=== PATIENT | female | born 2000 | race Caucasian/White ===

== ENCOUNTER 2022-06-02 12:50 | Emergency (ER) | payer OTHER, SELFPAY ==
[2022-06-02 12:57] VITALS: BP 145/96; PULSE 81; RESP 18; TEMP 36.3; O2SAT 99; BMI 42.3
--- NOTE | 2022-06-02 13:40 | CT_ITS ---
STUDY: CT BRAIN WITHOUT CONTRAST REASON FOR EXAM: Female, 21 years old. Weakness RADIATION DOSAGE (If Supplied By Facility): CTDIvol = ( 44.99 ) mGy, DLP = ( 812.98 ) mGycm TECHNIQUE: Transaxial CT imaging of the brain was performed without administration of intravenous contrast material. Individualized dose optimization techniques were used for this CT. COMPARISON: No relevant priors. FINDINGS: Normal soft tissue structures. Normal calvarium. Normal size ventricles and extra-axial spaces for the patient''s age. Normal white matter tracts of the cerebral hemispheres. Normal basal ganglia and thalami. Normal brainstem. Normal cerebellum. There is no intracranial hemorrhage. There are no findings of an acute ischemic infarction. Partial opacification of the left maxillary sinus. Mild mucosal thickening of the right maxillary sinus. CT/Brain/Head without Contrast IMPRESSION: Normal unenhanced CT scan of the brain. Sinusitis. Electronically Signed: Alonzo Bwoen MD at 14:32 EDT ,
[2022-06-02 13:42] VITALS: BP 127/81; BP 131/70; BP 147/99; PULSE 68; PULSE 71; PULSE 84
--- NOTE | 2022-06-02 13:48 | EX.ED.DYSGE1 ---
HPI <MARTIN Ferrell - Last Filed: 06/02/22 17:18> History of Present Illness Chief Complaint: Dizziness Narrative Narrative: 21-year-old female with history of anxiety, depression presents the emergency department with 1.5 hours of altered mental status, weakness in her upper and lower extremities, feeling of near syncope. Patient states that she has had a headache for greater than 1 week, she states an hour and a half ago, she felt very dizzy like she almost passed out. Patient states that it feels like she had an out of body experience and now her arms and legs are extremely heavy. Patient states she feels like she can even walk or move her extremities. She denies any shortness of breath, she denies any fevers or chills. Denies any sick contacts. Patient states that this has not happened before. Per the grandmother who is at bedside states that this is not normal for her. PFSH <MARTIN Ferrell - Last Filed: 06/02/22 17:18> [facility] Home Medications bupropion HCl 300 mg 24 hr tablet, extended release 300 mg PO DAILY 06/02/22 [History Last Taken Unknown] fluoxetine 10 mg capsule 10 mg PO DAILY 06/02/22 [History Last Taken Unknown] Allergy/AdvReac Type Severity Reaction Status Date / Time No Known Allergies Allergy Verified 06/02/22 12:56 Social History Smoking Status: Current every day smoker tobacco type: e-cigarettes ROS <MARTIN Ferrell - Last Filed: 06/02/22 17:18> ROS ED ROS Narrative Constitutional: Negative for fever, chills, weight loss. Positive for peripheral body weakness Eyes: Negative for vision loss, vision change, double vision ENT: Negative for any sore throat, ear pain, congestion Cardiovascular: Negative for any chest pain, tightness, palpitations Respiratory: Negative for any dominal pain, nausea, vomiting, diarrhea, constipation, blood in stool, blood in vomit. Positive for cough : Negative for any urinary frequency, dysuria, retention, blood in urine Muscle skeletal: Negative for any muscle joint pain, stiffness, arthralgias, neck pain, back pain. Positive for myalgias, upper and lower extremity weakness Neurological: Negative for any numbness or tingling, dizziness. Positive for headache, near syncope Skin: Negative for any rashes, lumps, itching, abrasions, lacerations Psychiatric: Negative for any depression, anxiety, stress, suicidal ideation, homicidal ideation Hematologic: Negative for any easy bruising, excessive bruising, easy bleeding Allergies: Negative for any eczema, hives, rash EXAM <MARTIN Ferrell - Last Filed: 06/02/22 17:18> Physical Exam Narrative Exam Narrative: Vital signs reviewed. Patient does have a flat affect, patient takes a long time to answer questions. Patient continue to look at her grandmother, and her grandmother says that it is okay that you can talk with him. Physical examination did not yield any significant abnormalities, patient when asked questions will just stare and not answer them. HEET: Head normocephalic atraumatic, TMs clear bilaterally. Posterior pharynx is clear, moist mucous membranes. Nares clear bilaterally. Pupils are equal round reactive to light. EOMs are intact. Negative for any nystagmus. Neck: Supple with no lymphadenopathy or tenderness. No signs of meningismus, negative jolt sign. Cardiac: Regular rate and rhythm no murmurs gallops or rubs, equal peripheral pulses bilaterally. Respiratory: Lungs clear to auscultation bilaterally. No chest tenderness. Abdomen: Soft, nontender, nondistended. No abdominal bruit or pulsatile masses. No hepatosplenomegaly Extremities: No peripheral edema, no signs of gross trauma or deformity. Active full range of motion of all extremities. Patient states that she cannot move her extremities however I see her moving them when i am in the room. Neuro: Cranial nerves II through XII intact, no focal neurological deficits. Skin: Clean dry and intact with no rash, purpura, petechiae, vesicles or pustules. Backs/flank: No CVA tenderness, no midline spinal tenderness, no deformity. Psych: No SI, HI or acute psychosis. Patient does have a flat affect, patient's mood is not appropriate. Psychiatric illness is in the differential. Const Vital Signs: 06/02/22 12:57 06/02/22 13:41 06/02/22 14:00 Temperature 97.3 F L Temperature Source Temporal Pulse Rate 81 74 Pulse Rate [Lying] Pulse Rate [Sitting (for 1 minute prior to obtaining)] Pulse Rate [Standing (for 1 minute prior to obtaining)] Respiratory Rate 18 20 H Respiratory Effort Normal Non-Labored Respiratory Pattern Normal Blood Pressure 145/96 H 136/82 H Blood Pressure [Lying] Blood Pressure [Sitting (for 1 minute prior to obtaining)] Blood Pressure [Standing (for 1 minute prior to obtaining)] Blood Pressure Mean 112 100 Blood Pressure Mean [Lying] Blood Pressure Mean [Sitting (for 1 minute prior to obtaining)] Blood Pressure Mean [Standing (for 1 minute prior to obtaining)] Pulse Ox 99 99 Oxygen Delivery Method Room Air Room Air 06/02/22 13:42 06/02/22 16:00 Temperature Temperature Source Pulse Rate 78 Pulse Rate [Lying] 71 Pulse Rate [Sitting (for 1 minute prior to obtaining)] 68 Pulse Rate [Standing (for 1 minute prior to obtaining)] 84 Respiratory Rate 21 H Respiratory Effort Respiratory Pattern Blood Pressure 142/84 H Blood Pressure [Lying] 131/70 H Blood Pressure [Sitting (for 1 minute prior to obtaining)] 127/81 H Blood Pressure [Standing (for 1 minute prior to obtaining)] 147/99 H Blood Pressure Mean 103 Blood Pressure Mean [Lying] 90 Blood Pressure Mean [Sitting (for 1 minute prior to obtaining)] 96 Blood Pressure Mean [Standing (for 1 minute prior to obtaining)] 115 Pulse Ox 96 Oxygen Delivery Method Room Air Positive well nourished, well developed and obese General Appearance ED: well developed Nutritional Appearance: obese <Dr. Afsaneh Bain, DO - Last Filed: 06/05/22 03:27> Physical Exam Const Vital Signs: 06/02/22 12:57 06/02/22 13:41 06/02/22 14:00 Temperature 97.3 F L Temperature Source Temporal Pulse Rate 81 74 Pulse Rate [Lying] Pulse Rate [Sitting (for 1 minute prior to obtaining)] Pulse Rate [Standing (for 1 minute prior to obtaining)] Respiratory Rate 18 20 H Respiratory Effort Normal Non-Labored Respiratory Pattern Normal Blood Pressure 145/96 H 136/82 H Blood Pressure [Lying] Blood Pressure [Sitting (for 1 minute prior to obtaining)] Blood Pressure [Standing (for 1 minute prior to obtaining)] Blood Pressure Mean 112 100 Blood Pressure Mean [Lying] Blood Pressure Mean [Sitting (for 1 minute prior to obtaining)] Blood Pressure Mean [Standing (for 1 minute prior to obtaining)] Pulse Ox 99 99 Oxygen Delivery Method Room Air Room Air 06/02/22 13:42 06/02/22 16:00 Temperature Temperature Source Pulse Rate 78 Pulse Rate [Lying] 71 Pulse Rate [Sitting (for 1 minute prior to obtaining)] 68 Pulse Rate [Standing (for 1 minute prior to obtaining)] 84 Respiratory Rate 21 H Respiratory Effort Respiratory Pattern Blood Pressure 142/84 H Blood Pressure [Lying] 131/70 H Blood Pressure [Sitting (for 1 minute prior to obtaining)] 127/81 H Blood Pressure [Standing (for 1 minute prior to obtaining)] 147/99 H Blood Pressure Mean 103 Blood Pressure Mean [Lying] 90 Blood Pressure Mean [Sitting (for 1 minute prior to obtaining)] 96 Blood Pressure Mean [Standing (for 1 minute prior to obtaining)] 115 Pulse Ox 96 Oxygen Delivery Method Room Air [facility] <MARTIN Ferrell - Last Filed: 06/02/22 17:18> [facility] Lab Data Labs: Laboratory Results - last 24 hr 06/02/22 06/02/22 06/02/22 14:00 14:07 14:30 WBC 9.4 RBC 4.79 Hgb 13.6 Hct 41.7 MCV 87.1 MCH 28.4 MCHC 32.6 RDW Std Deviation 42.0 RDW Coeff of Arpan 13.2 Plt Count 361 MPV 10.3 Immature Gran % (Auto) 0.400 Neut % (Auto) 64.6 Lymph % (Auto) 25.7 Bethel % (Auto) 7.3 Eos % (Auto) 1.9 Baso % (Auto) 0.1 Absolute Neuts (auto) 6.0 Absolute Lymphs (auto) 2.40 Nucleated RBC % 0 Sodium 140 Potassium 3.9 Chloride 105 Carbon Dioxide 27.0 Anion Gap 8 BUN 11 Creatinine 0.70 Estim Creat Clear Calc 121.55 Est GFR (MDRD) Af Amer 132 Est GFR (MDRD) Non-Af 109 BUN/Creatinine Ratio 15.7 Glucose 102 Calcium 9.4 Magnesium 2.2 TSH 1.89 Urine Color Urine Clarity Urine pH Ur Specific Mio Urine Protein Urine Glucose (UA) Urine Ketones Urine Occult Blood Urine Nitrite Urine Bilirubin Urine Urobilinogen Ur Leukocyte Esterase Urine RBC Urine WBC Ur Squamous Epith Cells Urine Bacteria Urine Mucus Urine Test Urine Opiates Screen NEGATIVE Urine Methadone Screen NEGATIVE Ur Barbiturates Screen NEGATIVE Ur Phencyclidine Scrn NEGATIVE Ur Amphetamines Screen NEGATIVE MDMA (Ecstasy) Screen NEGATIVE U Benzodiazepines Scrn NEGATIVE Urine Cocaine Screen NEGATIVE U Cannabinoids Screen NEGATIVE Ur Drug Screen Comment 06/02/22 14:30 WBC RBC Hgb Hct MCV MCH MCHC RDW Std Deviation RDW Coeff of Arpan Plt Count MPV Immature Gran % (Auto) Neut % (Auto) Lymph % (Auto) Bethel % (Auto) Eos % (Auto) Baso % (Auto) Absolute Neuts (auto) Absolute Lymphs (auto) Nucleated RBC % Sodium Potassium Chloride Carbon Dioxide Anion Gap BUN Creatinine Estim Creat Clear Calc Est GFR (MDRD) Af Amer Est GFR (MDRD) Non-Af BUN/Creatinine Ratio Glucose Calcium Magnesium TSH Urine Color Yellow Urine Clarity Clear Urine pH 6.0 Ur Specific Mio 1.015 Urine Protein Negative Urine Glucose (UA) Normal Urine Ketones Negative Urine Occult Blood Negative Urine Nitrite Negative Urine Bilirubin Negative Urine Urobilinogen Normal Ur Leukocyte Esterase Negative Urine RBC 0 SEEN Urine WBC 0-5 SEEN Ur Squamous Epith Cells 0-5 SEEN Urine Bacteria 0 SEEN Urine Mucus 0 SEEN Urine Test Negative Urine Opiates Screen Urine Methadone Screen Ur Barbiturates Screen Ur Phencyclidine Scrn Ur Amphetamines Screen MDMA (Ecstasy) Screen U Benzodiazepines Scrn Urine Cocaine Screen U Cannabinoids Screen Ur Drug Screen Comment Radiography Diagnostic Testing: Clinical Impression(s) from Imaging Studies Brain CT 06/02/22 13:40 IMPRESSION: Normal unenhanced CT scan of the brain. Sinusitis. Electronically Signed: Alonzo Bowen MD at 14:32 EDT , Chest X-Ray 06/02/22 13:58 IMPRESSION: Scattered calcified granulomas. The lungs are clear. Electronically Signed: Alonzo Bowen MD at 14:31 EDT , Treatment and Re-Evaluation Narrative: Patient on initial exam was difficult to obtain history, patient was not speaking to staff. Patient was acting if she could not speak, could not move. Patient did receive a significant work-up. Patient's vital signs were stable. Patient's orthostatic vital signs were negative. Patient did receive some basic labs, patient CBC chemistries urine toxicology was grossly unremarkable. Patient's urinalysis was negative for any infection. Patient did receive a CT scan of the brain secondary to the symptoms, this was showed sinusitis however normal unenhanced CT scan of the brain. Patient's chest x-ray showed that the lungs were clear. Patient did receive IV fluids. EKG was unremarkable. After being here, receiving IV fluids, patient states that she all of a sudden had full range of motion of her extremities, she felt much better was able speak again. Patient was still complaining of a headache, she received a migraine cocktail of IV Reglan, Benadryl, Toradol, IV fluids. Patient at this time feels back to normal and like to be discharged. The pathology for the patient's symptoms are uncertain, there could be a psychiatric component. However at this time, patient is not suicidal, homicidal, patient is stable for discharge. she instructed to follow-up outpatient. Instructed return for any worsening symptoms. <Dr. Afsaneh Bain, DO - Last Filed: 06/05/22 03:27> [facility] Lab Data Attestation: I reviewed the patient's lab results. Labs: Laboratory Results - last 24 hr 06/02/22 06/02/22 06/02/22 14:00 14:07 14:30 WBC 9.4 RBC 4.79 Hgb 13.6 Hct 41.7 MCV 87.1 MCH 28.4 MCHC 32.6 RDW Std Deviation 42.0 RDW Coeff of Arpan 13.2 Plt Count 361 MPV 10.3 Immature Gran % (Auto) 0.400 Neut % (Auto) 64.6 Lymph % (Auto) 25.7 Bethel % (Auto) 7.3 Eos % (Auto) 1.9 Baso % (Auto) 0.1 Absolute Neuts (auto) 6.0 Absolute Lymphs (auto) 2.40 Nucleated RBC % 0 Sodium 140 Potassium 3.9 Chloride 105 Carbon Dioxide 27.0 Anion Gap 8 BUN 11 Creatinine 0.70 Estim Creat Clear Calc 121.55 Est GFR (MDRD) Af Amer 132 Est GFR (MDRD) Non-Af 109 BUN/Creatinine Ratio 15.7 Glucose 102 Calcium 9.4 Magnesium 2.2 TSH 1.89 Urine Color Urine Clarity Urine pH Ur Specific Mio Urine Protein Urine Glucose (UA) Urine Ketones Urine Occult Blood Urine Nitrite Urine Bilirubin Urine Urobilinogen Ur Leukocyte Esterase Urine RBC Urine WBC Ur Squamous Epith Cells Urine Bacteria Urine Mucus Urine Test Urine Opiates Screen NEGATIVE Urine Methadone Screen NEGATIVE Ur Barbiturates Screen NEGATIVE Ur Phencyclidine Scrn NEGATIVE Ur Amphetamines Screen NEGATIVE MDMA (Ecstasy) Screen NEGATIVE U Benzodiazepines Scrn NEGATIVE Urine Cocaine Screen NEGATIVE U Cannabinoids Screen NEGATIVE Ur Drug Screen Comment 06/02/22 14:30 WBC RBC Hgb Hct MCV MCH MCHC RDW Std Deviation RDW Coeff of Arpan Plt Count MPV Immature Gran % (Auto) Neut % (Auto) Lymph % (Auto) Bethel % (Auto) Eos % (Auto) Baso % (Auto) Absolute Neuts (auto) Absolute Lymphs (auto) Nucleated RBC % Sodium Potassium Chloride Carbon Dioxide Anion Gap BUN Creatinine Estim Creat Clear Calc Est GFR (MDRD) Af Amer Est GFR (MDRD) Non-Af BUN/Creatinine Ratio Glucose Calcium Magnesium TSH Urine Color Yellow Urine Clarity Clear Urine pH 6.0 Ur Specific Mio 1.015 Urine Protein Negative Urine Glucose (UA) Normal Urine Ketones Negative Urine Occult Blood Negative Urine Nitrite Negative Urine Bilirubin Negative Urine Urobilinogen Normal Ur Leukocyte Esterase Negative Urine RBC 0 SEEN Urine WBC 0-5 SEEN Ur Squamous Epith Cells 0-5 SEEN Urine Bacteria 0 SEEN Urine Mucus 0 SEEN Urine Test Negative Urine Opiates Screen Urine Methadone Screen Ur Barbiturates Screen Ur Phencyclidine Scrn Ur Amphetamines Screen MDMA (Ecstasy) Screen U Benzodiazepines Scrn Urine Cocaine Screen U Cannabinoids Screen Ur Drug Screen Comment Radiography Diagnostic Testing: Clinical Impression(s) from Imaging Studies Brain CT 06/02/22 13:40 IMPRESSION: Normal unenhanced CT scan of the brain. Sinusitis. Electronically Signed: Alonzo Bowen MD at 14:32 EDT , Chest X-Ray 06/02/22 13:58 IMPRESSION: Scattered calcified granulomas. The lungs are clear. Electronically Signed: Alonzo Bowen MD at 14:31 EDT , Treatment and Re-Evaluation Narrative: Patient on initial exam was difficult to obtain history, patient was not speaking to staff. Patient was acting if she could not speak, could not move. Patient did receive a significant work-up. Patient's vital signs were stable. Patient's orthostatic vital signs were negative. Patient did receive some basic labs, patient CBC chemistries urine toxicology was grossly unremarkable. Patient's urinalysis was negative for any infection. Patient did receive a CT scan of the brain secondary to the symptoms, this was showed sinusitis however normal unenhanced CT scan of the brain. Patient's chest x-ray showed that the lungs were clear. Patient did receive IV fluids. EKG was unremarkable. After being here, receiving IV fluids, patient states that she all of a sudden had full range of motion of her extremities, she felt much better was able speak again. Patient was still complaining of a headache, she received a migraine cocktail of IV Reglan, Benadryl, Toradol, IV fluids. Patient at this time feels back to normal and like to be discharged. The pathology for the patient's symptoms are uncertain, there could be a psychiatric component. However at this time, patient is not suicidal, homicidal, patient is stable for discharge. she instructed to follow-up outpatient. Instructed return for any worsening symptoms. I have personally performed a face to face assessment of the patient and have reviewed the BILLY Note. I performed a substantive portion of the visit including all aspects of the following. My luciano findings include: Patient is a 21-year-old female with history of depression (recently started on Wellbutrin about a week ago) presenting with generalized weakness, near syncope and confusion. Apparently at work patient just suddenly fell like she was going to pass out. She felt she was having out of body experience and had a hard time even communicating even though she knew what was going on around her. She denies any associated chest pain, shortness of breath, recent illnesses, fever or chills. No other complaints at this time. On my exam patient has returned to her baseline and states she feels much better. She is awake alert in no acute distress. Moist mucosal membranes. Head normocephalic/atraumatic. Neck is supple with no JVD or meningeal signs. Lungs are clear to auscultation bilaterally. Heart regular rate and rhythm. Abdomen soft and nontender. Normal tone throughout. Normal extremities. No focal neurologic deficits. Denies any depression, anxiety, HI or SI. No rash appreciated. Patient's vital signs are significant only for mild hypertension but they are otherwise normal. Orthostatics are normal. Work-up including CBC, BMP, TSH, urine drug screen and urinalysis/urine are grossly normal. CT of the brain obtained which not show any acute process and chest x-ray interpreted by myself as well as radiology does not show any acute process. The exact cause of her symptoms or not clear. Patient is given a liter of IV fluids. Is possible that this weird sensation could have been associated with her new psychiatric medication. On repeat evaluation she states she feels much better but she is complain of a headache. She is given IV migraine cocktail of Reglan, Benadryl and Toradol. Patient discharged home in improved and stable condition. Counseled return precautions. Counseled the exact cause of this episodes not clear however I do think she is safe to go home. Patient agreeable with this plan of care. Other additions or changes: [None] Discharge Plan Triage Chief Complaint: Dizziness ED Midlevel Provider: Salvador Oneal ED Provider: Afsaneh Bain Dx/Rx/DC Orders Clinical Impression: Headache, Fatigue, Acute dehydration Instructions: Dehydration, Understanding Headache Pain Prescriptions: No Action fluoxetine 10 mg capsule 10 mg PO DAILY Label Comments: TAKE 1 (ONE) CAPSULE (10 MG TOTAL) BY MOUTH DAILY . bupropion HCl 300 mg tablet extended release 24 hr 300 mg PO DAILY Label Comments: TAKE 1 TABLET (300 MG TOTAL) BY MOUTH DAILY Primary Care Provider: Care Physician,No Primary Referrals: Care Physician,No Primary [Primary Care Provider] - Activity Restrictions/Additional Instructions: Please continue take your medicines. Follow-up with your PCP peer Disposition Disposition: Home, Self Care
[2022-06-02] MEDS: 0.9% Normal Saline 1,000 ML 1000 ML IV (13:58)
--- NOTE | 2022-06-02 13:58 | RAD_ITS ---
STUDY: X-RAY CHEST REASON FOR EXAM: Female, 21 years old. Dizziness. Near syncopal episode. TECHNIQUE: Single AP portable view of the chest. COMPARISON: None. FINDINGS: EKG electrode are seen. The lungs are clear and expanded. Scattered calcified granulomas. There is no demonstrated pleural abnormality. Normal size heart. Normal mediastinum and mckay. Normal visualized pulmonary arteries. Normal visualized aortic arch and descending thoracic aorta. Normal visualized thoracic spine. Normal visualized ribs, clavicles, and shoulders. There is no demonstrated abnormality of the visualized soft tissue structures of the upper abdomen. RAD/Chest 1 View (Portable) IMPRESSION: Scattered calcified granulomas. The lungs are clear. Electronically Signed: Alonzo Bowen MD at 14:31 EDT ,
[2022-06-02 14:00] VITALS: BP 136/82; PULSE 74; RESP 20; O2SAT 99
[2022-06-02 14:25] LABS: Basophil# 0.01 X10^3/uL; Basophil% 0.1 % (0-1); Eosinophil# 0.18 X10^3/uL; Eosinophils% 1.9 % (0-5); Hematocrit 41.7 % (37-47); Hemoglobin 13.6 g/dL (12.0-15.0); Lymphocyte % 25.7 % (19-41); Mean Corp Hgb Conc 32.6 g/dL (32-36); Mean Corpuscular Hgb 28.4 pg (27.0-32.0); Mean Corpuscular Volume 87.1 fL (81-99); Mean Platelet Vol. 10.3 fl (6.2-12.0); Monocyte# 0.68 X10^3/uL; Monocyte% 7.3 % (0-10); NRBC Flagged by Analyzer 0 % (0-5); Neutrophil # 6.04 X10^3/uL (2.7-7.7); Neutrophil % 64.6 % (47-70); Platelet Count 361 K/mm3 (150-450); RBC Distribution Width CV 13.2 % (11.6-14.6); Red Blood Count 4.79 M/mm3 (4.2-5.4); White Blood Count 9.4 K/mm3 (4.4-11.0)
[2022-06-02 14:33] LABS: Anion Gap 8 (5-15); BUN 11 mg/dL (7-18); BUN/Creat Ratio 15.7 RATIO (10-20); Calcium,Total 9.4 mg/dL (8.5-10.1); Chloride 105 mmol/L (98-107); EST Glomerular Filtration Rate 109 mL/min (>60); Est Glom Filt Rate - Afr Amer 132 mL/min (>60); Estimated Creatinine Clearance 121.55 ml/min; Glucose 102 mg/dL (74-106); Magnesium 2.2 mg/dL (1.6-2.6); Potassium 3.9 mmol/L (3.5-5.1); Sodium Level 140 mmol/L (136-145); Thyroid Stim Hormone (TSH) 1.89 uIU/mL (0.358-3.74)
[2022-06-02 14:39] LABS: Bacteria 0 SEEN /hpf (None Seen); Mucous, Urine 0 SEEN /hpf (<or=2+); Red Blood Cells-Urine 0 SEEN /hpf (0-5)
[2022-06-02 15:01] LABS: Color, Urine Yellow (Yellow); Glucose, Dipstick Normal (Normal); Ketone-Dipstick Negative (Negative); Leukocyte Esterase-Dipstick Negative /ul (Negative); Nitrite-Dipstick Negative (Negative); Occult Blood-Urine Negative /ul (Negative); Protein-Dipstick Negative (Negative); Specific Gravity, Urine 1.015 (1.002-1.030); Urine Bilirubin Dipstick Negative (Negative); Urine Clarity Clear (Clear); Urine Urobilinogen Normal (Normal)
[2022-06-02 15:03] LABS: Amphetamine Urine VISTA NEGATIVE (<1000 ng/mL); Barbiturate Urine VISTA NEGATIVE (< 200 ng/mL); Benzodiazepine Urine VISTA NEGATIVE (< 200 ng/mL); Cocaine Urine VISTA NEGATIVE (< 300 ng/mL); Ecstacy Urine VISTA NEGATIVE (< 500 ng/mL); Methadone Urine VISTA NEGATIVE (< 300 ng/mL); PCP Urine VISTA NEGATIVE (< 25 ng/mL); THC Urine VISTA NEGATIVE (< 50 ng/mL); Vista UDS pH Range 6
[2022-06-02 15:07] LABS: Internal QC Validated? YES +Cl - CLEAR BKGD; Pregnancy, Urine Negative Negative; Squamous Epithelial Cells - UA 0-5 SEEN /hpf (5-10); White Blood Cells 0-5 SEEN /hpf (0-5)
[2022-06-02 16:00] VITALS: BP 142/84; PULSE 78; RESP 21; O2SAT 96
[2022-06-02] MEDS: DiphenhydrAMINE 50 MG/ML Syringe 25 MG IV (16:51)
[2022-06-02] MEDS: Metoclopramide 10 MG/2 ML Vial IV (16:51)
[2022-06-02] MEDS: Ketorolac 15 MG/ML Vial IV (16:51)
[2022-06-02 17:19] VITALS: RESP 16
== END 2022-06-02 17:26 | disposition home or self-care (01) ==
PROVIDERS: Nurse Practitioner; Emergency Provider Emergency Medicine; Visit Provider Emergency Medicine
DX: R53.83 Other fatigue (principal); E86.0 Dehydration; R42 Dizziness and giddiness; F41.9 Anxiety disorder, unspecified; F17.290 Nicotine dependence, other tobacco product, uncomplicated; R41.82 Altered mental status, unspecified; R55 Syncope and collapse; F32.A Depression, unspecified; E66.9 Obesity, unspecified; R53.1 Weakness; R51.9 Headache, unspecified; Z79.899 Other long term (current) drug therapy
CPT/HCPCS: 70450; 71045; 80048; 80307; 81001; 81025; 83735; 84443; 85025; 93005; 96361; 96374; 96375; 99284; J7030; A4216

== ENCOUNTER 2022-10-31 17:10 | Emergency (ER) | payer BC, OTHER, SELFPAY ==
[2022-10-31 17:10] VITALS: BP 158/85; PULSE 106; RESP 18; TEMP 36.1; O2SAT 98; BMI 43.7
--- NOTE | 2022-10-31 17:19 | EDS_ITS ---
HPI History of Present Illness Chief Complaint: Abd Pain Narrative Narrative: Patient presents with relatively rapid onset of right-sided lower abdominal pain which is sharp and stabbing, there is a waxing and waning to the pain and a colicky component. She does not have groin pain. She has no urinary symptoms. No recent fevers or chills she has some nausea with this. She is on control and denies PFSH PFS Home Medications bupropion HCl 300 mg 24 hr tablet, extended release 300 mg PO DAILY 06/02/22 [History Last Taken Unknown] fluoxetine 10 mg capsule 10 mg PO DAILY 06/02/22 [History Last Taken Unknown] naproxen 500 mg tablet (Naprosyn) 500 mg PO BID PRN pain #20 tabs 10/31/22 [Rx Last Taken Unknown] Allergy/AdvReac Type Severity Reaction Status Date / Time No Known Allergies Allergy Verified 10/31/22 17:12 Social History Smoking Status: Current every day smoker tobacco type: e-cigarettes ROS ROS ED ROS Narrative Past medical history: Reviewed Medications: Reviewed Social history: Noncontributory Review of systems: All systems negative except as indicated General: No fever Cardiovascular: No chest pain Respiratory: No shortness of breath or cough Gastrointestinal: As in HPI Genitourinary: No dysuria Musculoskeletal: Denies myalgias no difficulty with ambulation. No back pain Skin: No rash EXAM Physical Exam Narrative Exam Narrative: Physical exam General: She appears somewhat uncomfortable Head: Normocephalic, Atraumatic ENT: Moist mucous membranes Neck: Supple, Nontender, No lymphadenopathy Cardiovascular: Regular rate, Regular rhythm Respiratory: No distress, CTA bilaterally Abdomen: Soft, right lower quadrant abdominal pain without any guarding or rebound. Back: Nontender, Normal Inspection. Negative for: CVA tenderness Extremities: Nontender, No edema Skin: Normal color, No rash Neurological: Alert, Normal Strength, Normal Sensation Const Vital Signs: 10/31/22 17:10 10/31/22 19:37 Temperature 96.9 F L Temperature Source Temporal Pulse Rate 106 H 101 H Respiratory Rate 18 18 Blood Pressure 158/85 H 132/69 H Blood Pressure Mean 109 90 Pulse Ox 98 99 Oxygen Delivery Method Room Air Room Air MDM MDM MDM Narrative Medical decision making narrative: Patient's work-up is unremarkable. CT is unremarkable urinalysis CBC and CMP all interpreted by me she has very slight leukocytosis this is likely secondary to pain since there is no evidence of infection. She does not have appendicitis or kidney stone which were on top of my differential, she may have endometriosis and she may need an OB follow-up, she has not from this area and I will refer her. She will be treated with analgesia for home and otherwise I will discharge in stable condition if she feels worse she has fever chills or any other sym ptoms she is to return. I talked to her friend who is in the room who also agrees with this. Patient has no urinary symptoms, she also has no vaginal discharge or bleeding or any significant vaginal symptoms therefore a exam was deferred. Lab Data Labs: Laboratory Results - last 24 hr 10/31/22 10/31/22 10/31/22 17:30 17:30 17:46 WBC 12.6 H RBC 4.74 Hgb 13.9 Hct 41.8 MCV 88.2 MCH 29.3 MCHC 33.3 RDW Std Deviation 42.5 RDW Coeff of Arpan 13.1 Plt Count 363 MPV 10.2 Immature Gran % (Auto) 0.600 Neut % (Auto) 67.1 Lymph % (Auto) 23.5 [place] % (Auto) 7.8 Eos % (Auto) 0.8 Baso % (Auto) 0.2 Absolute Neuts (auto) 8.4 H Absolute Lymphs (auto) 2.96 Nucleated RBC % 0 Sodium 138 Potassium 3.6 Chloride 103 Carbon Dioxide 27.0 Anion Gap 8 BUN 9 Creatinine 0.85 Estim Creat Clear Calc 99.24 Est GFR (MDRD) Af Amer 106 Est GFR (MDRD) Non-Af 87 BUN/Creatinine Ratio 10.6 Glucose 90 Calcium 9.1 Total Bilirubin 0.20 AST 12 L ALT 30 Alkaline Phosphatase 90 Total Protein 7.6 Albumin 3.7 Globulin 3.9 Albumin/Globulin Ratio 0.9 Lipase 96 Urine Color Yellow Urine Clarity Clear Urine pH 7.0 Ur Specific [place] 1.015 Urine Protein 15 H Urine Glucose (UA) Normal Urine Ketones Negative Urine Occult Blood 10 H Urine Nitrite Negative Urine Bilirubin Negative Urine Urobilinogen Normal Ur Leukocyte Esterase Negative Urine RBC 0 SEEN Urine WBC 0 SEEN Ur Squamous Epith Cells 0-5 SEEN Urine Bacteria 0 SEEN Urine Mucus 0 SEEN Urine Test Negative Radiography Diagnostic Testing: Clinical Impression(s) from Imaging Studies Abdomen/Pelvis CT 10/31/22 18:18 IMPRESSION: Findings suspicious for cystitis. Correlate with urinalysis. Diverticulosis. Electronically Signed: Duran England MD at 19:32 EST , Discharge Plan Triage Chief Complaint: Abd Pain ED Provider: Salvador David Dx/Rx/DC Orders Clinical Impression: Abdominal pain Instructions: Abdominal Pain, ED Pelvic Pain, Unknown Cause Prescriptions: New naproxen [Naprosyn] 500 mg tablet 500 mg PO BID PRN (Reason: pain) Qty: 20 0RF No Action fluoxetine 10 mg capsule 10 mg PO DAILY Label Comments: TAKE 1 (ONE) CAPSULE (10 MG TOTAL) BY MOUTH DAILY . bupropion HCl 300 mg tablet extended release 24 hr 300 mg PO DAILY Label Comments: TAKE 1 TABLET (300 MG TOTAL) BY MOUTH DAILY Stand Alone Forms: ED Work / School Excuse Primary Care Provider: Care Physician,No Primary Referrals: Zeinab Stephens DO [Med Staff - Active Staff] - 3-5 Days Care Physician,No Primary [Primary Care Provider] - Disposition Disposition: Home, Self Care
[2022-10-31] MEDS: Morphine 4 MG/ML Syringe IV (17:29)
[2022-10-31] MEDS: Ondansetron 4 MG/2 ML Vial IV (17:29)
[2022-10-31 17:46] LABS: Absolute Lymphocyte Count 2.96 X10^3/uL (0.83-4.51); Absolute Neutrophil Count 8.4 X10^3/uL (2.0-7.7); Basophil# 0.02 X10^3/uL; Basophil% 0.2 % (0-1); Eosinophils% 0.8 % (0-5); Hematocrit 41.8 % (37-47); Hemoglobin 13.9 g/dL (12.0-15.0); Lymphocyte # 2.96 X10^3/ul (0.83-4.51); Lymphocyte % 23.5 % (19-41); Mean Corp Hgb Conc 33.3 g/dL (32-36); Mean Corpuscular Hgb 29.3 pg (27.0-32.0); Mean Corpuscular Volume 88.2 fL (81-99); Mean Platelet Vol. 10.2 fl (6.2-12.0); Monocyte# 0.98 X10^3/uL; Monocyte% 7.8 % (0-10); NRBC Flagged by Analyzer 0 % (0-5); Neutrophil # 8.43 X10^3/uL (2.7-7.7); Neutrophil % 67.1 % (47-70); Platelet Count 363 K/mm3 (150-450); RBC Distribution Width CV 13.1 % (11.6-14.6); RBC Distribution Width SD 42.5 fl (35.1-43.9); Red Blood Count 4.74 M/mm3 (4.2-5.4); White Blood Count 12.6 K/mm3 (4.4-11.0)
[2022-10-31 17:46] LABS: Bacteria 0 SEEN /hpf (None Seen); Mucous, Urine 0 SEEN /hpf (<or=2+); Red Blood Cells-Urine 0 SEEN /hpf (0-5); White Blood Cells 0 SEEN /hpf (0-5)
--- NOTE | 2022-10-31 17:56 | CM.ED ---
Social Work Note Referral Source: Case find Referral Reason: no PCP SW met with patient and patient's guest and introduced herself and role as [facility] SW. Patient was laying in hospital bed and agreeable to speak to social welfare administrator with guest present. SW inquired about patient's insurance and current PCP. Patient verified her insurance and reported she is between PCPs. Patient declined a list of PCP in network accepting new patient's. No other needs voiced, SW remains available if needs arise. Clarice Braden MSW, ANGEL[place]
[2022-10-31 18:00] LABS: Color, Urine Yellow (Yellow); Glucose, Dipstick Normal (Normal); Ketone-Dipstick Negative (Negative); Leukocyte Esterase-Dipstick Negative /ul (Negative); Nitrite-Dipstick Negative (Negative); Occult Blood-Urine 10 /ul (Negative); Protein-Dipstick 15 mg/dl (Negative); Specific Gravity, Urine 1.015 (1.002-1.030); Urine Bilirubin Dipstick Negative (Negative); Urine Clarity Clear (Clear); Urine Urobilinogen Normal (Normal)
[2022-10-31 18:03] LABS: ALB/GLOB Ratio 0.9 RATIO (0.9-2.4); AST(SGOT) 12 U/L (15-37); Alanine Aminotransfer ALT/SGPT 30 U/L (13-56); Albumin, Serum 3.7 g/dL (3.2-5.0); Alkaline Phosphatase 90 U/L (45-117); Anion Gap 8 (5-15); BUN 9 mg/dL (7-18); BUN/Creat Ratio 10.6 RATIO (10-20); Calcium,Total 9.1 mg/dL (8.5-10.1); Chloride 103 mmol/L (98-107); Creatinine, Serum 0.85 mg/dL (0.55-1.02); EST Glomerular Filtration Rate 87 mL/min (>60); Est Glom Filt Rate - Afr Amer 106 mL/min (>60); Estimated Creatinine Clearance 99.24 ml/min; Globulin 3.9 g/dL (2.2-4.2); Glucose 90 mg/dL (74-106); Lipase 96 U/L (73-393); Potassium 3.6 mmol/L (3.5-5.1); Protein, Total 7.6 g/dL (6.4-8.2); Sodium Level 138 mmol/L (136-145)
[2022-10-31 18:07] LABS: Internal QC Validated? YES +Cl - CLEAR BKGD; Pregnancy, Urine Negative Negative
[2022-10-31 18:08] LABS: Squamous Epithelial Cells - UA 0-5 SEEN /hpf (5-10)
--- NOTE | 2022-10-31 18:18 | CT_ITS ---
INDICATION: Pain EXAMINATION: CT Abdomen And Pelvis W/O Contrast Injection TECHNIQUE: Helically acquired images were obtained of the abdomen and pelvis without the use of IV contrast. A radiation dose optimization technique was used for this scan. Oral contrast: None. COMPARISON: None FINDINGS: Evaluation of the solid organs and vascular structures is limited without intravenous contrast. Visualized lung bases: Unremarkable Liver: Unremarkable Gallbladder: Unremarkable Spleen: Unremarkable Pancreas: Unremarkable Adrenal Glands: Unremarkable Kidneys: Unremarkable Vasculature: Unremarkable GI Tract: Scattered diverticula throughout the colon without evidence of inflammation. Lymphadenopathy: None Peritoneum: No ascites. Bladder: Mild circumferential wall thickening with subtle surrounding inflammatory changes. Reproductive organs: IUD in place. Bones/Soft tissues: No suspicious osseous or soft tissue lesions CT/Abdomen/Pelvis without Cont IMPRESSION: Findings suspicious for cystitis. Correlate with urinalysis. Diverticulosis. Electronically Signed: Duran England MD at 19:32 EST ,
[2022-10-31 19:37] VITALS: BP 132/69; PULSE 101; RESP 18; O2SAT 99
[2022-10-31] MEDS: oxyCODONE 5 MG Tablet PO (19:46)
== END 2022-10-31 19:56 | disposition home or self-care (01) ==
PROVIDERS: Emergency Provider Emergency Medicine; Visit Provider Emergency Medicine
DX: R10.31 Right lower quadrant pain (principal); F17.290 Nicotine dependence, other tobacco product, uncomplicated; K57.90 Diverticulosis of intestine, part unspecified, without perforation or abscess without bleeding
CPT/HCPCS: 74176; 80053; 81001; 81025; 83690; 85025; 96374; 96376; 99283; A4216; J2405